=== PATIENT | male | born 2000 | race Caucasian/White ===

== ENCOUNTER 2020-01-30 17:26 | Emergency (ER) | payer OTHER, SELFPAY ==
[~2020-01-30] VITALS: Ht 172.7 cm; Wt 113.4 kg
[2020-01-30 17:29] VITALS: BP 128/83; Ht 172.7 cm; Wt 113.4 kg
== END 2020-01-30 18:14 | disposition home or self-care (01) ==
LOC: ED 17:26
DX: U07.1 COVID-19 (principal)
CPT/HCPCS: U0003-CS